=== PATIENT | male | born 1975 | race Caucasian/White ===

== ENCOUNTER 2025-01-10 06:06 | Day surgery (SDC) | payer OTHER ==
[2025-01-10] MEDS ORDERED: Lactated Ringers 1,000 ML IV ONE (06:11)
[2025-01-10] MEDS: Lactated Ringers 1,000 ML IV SCH (06:14)
[2025-01-10 06:34] VITALS: RESP 18
[2025-01-10] MEDS ORDERED: Xylocaine-Mpf 2% 5 Ml Vial ONE (07:59)
[2025-01-10] MEDS ORDERED: propofoL IV ONE ×2 (07:59→08:12)
[2025-01-10 09:20] VITALS: BP 155/105; PULSE 72; TEMP 97.4; O2SAT 98
--- NOTE | 2025-01-11 11:17 | OP ---
SURGERY DATE/TIME: 01/10/25 [id number] PREOPERATIVE DIAGNOSIS: Positive Cologuard. POSTOPERATIVE DIAGNOSIS: Polyps in the transverse and sigmoid colon. PROCEDURE: Colonoscopy with cold forceps polypectomies. SURGEON: Yasir Sanford MD ANESTHESIA: Medication given by the anesthesia department. INDICATION: The patient is a 49-year-old white male presenting now for positive Cologuard test for further evaluation. The patient was apprised of the risks of the procedure including risk of perforation, phlebitis, untoward reaction to medication, bleeding, and missed lesions. The patient verbalized his understanding and desired to have the procedure performed. DESCRIPTION OF PROCEDURE AND FINDINGS: Patient was given medication by the anesthesia department. He had continuous pulse oximetry, ECG monitoring, and intermittent blood pressure monitoring during the examination. He was placed in the left lateral decubitus position. Digital rectal examination was performed and revealed normal anal sphincter tone, no masses, and a normal prostate. The flexible Olympus videocolonoscope was used to intubate the rectum. A view of the colon was developed sequentially to the cecum. Upon insertion and withdrawal, including retroflexed viewing of the rectum, was noted polyps in the transverse and sigmoid colon. These were destroyed using multiple passes of the cold forceps biopsy instrument. The scope was removed. The patient tolerated the procedure well and was sent back to outpatient recovery in good condition. The prep was noted to be fair.
== END 2025-01-10 09:22 | disposition home or self-care (01) ==
LOC: SDC 06:06
PROVIDERS: ATTEND Family Medicine
DX: D12.7 Benign neoplasm of rectosigmoid junction (principal); D12.5 Benign neoplasm of sigmoid colon; D12.3 Benign neoplasm of transverse colon; R19.5 Other fecal abnormalities